=== PATIENT | female | born 1985 | race Caucasian/White ===

== ENCOUNTER 2021-02-22 22:59 | Emergency (ER) | payer MEDICAID, SELFPAY ==
[2021-02-23 00:18] VITALS: BP 105/69; PULSE 82; RESP 18; TEMP 37.7; O2SAT 98; BMI 24.2
[2021-02-23 03:39] LABS: COVID-19 Test Positive (Negative)
--- NOTE | 2021-02-23 05:12 | ED.URI ---
HPI - URI/Sore Throat General Chief Complaint: Upper Respiratory Symptoms Stated Complaint: COVID SYMPTOMS Time Seen by Provider: 02/23/21 04:17 Source: patient Mode of arrival: EMS History of Present Illness HPI Narrative: 35-year-old female without significant past medical history arise via EMS for complaints general body aches, weakness, diarrhea, headache. Patient states that she has not been COVID-19 vaccinated and denies travel. Related Data Allergies Allergy/AdvReac Type Severity Reaction Status Date / Time No Known Allergies Allergy Unverified 11/05/19 15:27 Review of Systems Review of Systems: Pertinent positives and negatives as stated in HPI 10 point review of systems is otherwise negative. PMFSH Past Medical History Source: nursing notes reviewed Social History Social History Advance Directives: No Advance Directives Information Provided: No Patient : No Physical Exam Vital Signs: Vital Signs: Last Vital Signs Temp 99.8 F 02/23/21 00:18 Pulse 82 02/23/21 00:18 Resp 18 02/23/21 00:18 BP 105/69 02/23/21 00:18 Pulse Ox 98 02/23/21 00:18 BMI result Body Mass Index 24.2 VITAL SIGNS: Reviewed. GENERAL: Well developed, well nourished, in no acute distress. HEAD: Normocephalic/atraumatic EYES: PERRLA, EOMI EARS: Ext canals without abnormality, TMs non-bulging and non-erythematous NOSE: Nares patent bilateral OROPHARYNX: no oral lesions noted, posterior pharynx clear and non-erythematous without noted tonsillar enlargement/erythema/exudates NECK: Supple, no adenopathy LUNGS: Normal breath sounds. No adventitious sounds or accessory muscle use. SpO2<98> CARDIOVASCULAR: Regular rate and rhythm without noted murmurs ABDOMEN: Soft, non-tender, non-distended with bowel sounds. SKIN: Inspection of the skin reveals no rashes NEUROLOGIC: Alert and oriented x 4. Course Course Course Narrative: 35-year-old female with history and clinical presentation consistent with viral syndrome and on review of investigations is noted be COVID-19 positive. Patient was informed of all results and strictly instructed to isolate. Patient is otherwise afebrile, not tachycardic or tachypneic and is oxygenating well on room air. She is discharged home in stable condition. MDM - URI/Sore Throat Lab Data Labs: Lab Results 02/23/21 Range/Units 03:16 COVID-19 (PATRICE) Positive A (Negative) COVID-19 Clin Com See Note Discharge Plan Discharge Clinical Impression: Upper respiratory infection, Lab test positive for detection of COVID-19 virus Patient Disposition: Home, Self-Care Instructions: Viral Syndrome (ED), COVID-19 (Coronavirus Disease 2019) (ED) Additional Instructions: 1. Increase fluid hydration, especially with water. 2. Recommend [id number] Tylenol/ibuprofen as needed for body aches, headache, temperatures greater than 100.4. 3. Follow-up with your primary care provider by setting up a telemedicine appointment for re-evaluation. You have been diagnosed with COVID-19 and are required to isolate for 14 days and follow all state, Federal guidelines regarding your infection. Return to the ER for worsening symptoms. Interventions: ED Discharge Assessment Last Done: 02/23/21 05:02 Discharge Date/Time: 02/23/21 05:03
== END 2021-02-23 05:03 | disposition home or self-care (01) ==
PROVIDERS: Emergency Provider Student in an Organized Health Care Education/Training Program
DX: U07.1 COVID-19 (principal); J06.9 Acute upper respiratory infection, unspecified
CPT/HCPCS: 87635; 99282; 99283